=== PATIENT | male | born 1990 | race Caucasian/White ===

== ENCOUNTER 2023-03-05 04:22 | Emergency (ER) | payer OTHER ==
[~2023-03-05] VITALS: Ht 172.7 cm; Wt 84.0 kg
[2023-03-05 04:59] VITALS: O2SAT 97
[2023-03-05] MEDS ORDERED: HYDROCODONE/ACETAMINOPHEN 7.5/325MG TABLET PO ONE (05:45)
[2023-03-05 06:45] VITALS: BP 121/69; PULSE 84; RESP 18; TEMP 98.4
[2023-03-05 07:44] LABS: CLARITY URINE TURBID (CLEAR); COLOR URINE YELLOW (YELLOW); GLUCOSE URINE NEGATIVE (NEGATIVE); KETONES URINE NEGATIVE (NEGATIVE); LEUKOCYTE ESTERASE URINE NEGATIVE (NEGATIVE); NITRITE URINE NEGATIVE (NEGATIVE); OCCULT BLOOD URINE NEGATIVE (NEGATIVE); PROTEIN URINE NEGATIVE (NEGATIVE); SPECIFIC GRAVITY URINE 1.029 (1.005-1.030); UROBILINOGEN URINE 0.2 E.U./dL (0.2-1.0)
[2023-03-05 08:12] LABS: MUCUS URINE 2+ /lpf (NONE/TRACE)
[2023-03-05] MEDS ORDERED: KETOROLAC 60MG/2ML VIAL IM ONE (08:15)
[2023-03-05 08:16] LABS: URIC ACID CRYSTALS URINE 4+ /lpf
[2023-03-05 08:17] LABS: CALCIUM OXALATE CRYSTALS URINE 1+ /lpf
[2023-03-05 08:18] LABS: RBC URINE NONE SEEN /hpf (0-2); SQUAMOUS EPITHELIAL CELL URINE NONE SEEN /lpf (RARE/1+); WBC URINE NONE SEEN /hpf (0-2)
[2023-03-05 08:19] LABS: BACTERIA URINE TRACE
[2023-03-05 09:11] LABS: BASOPHILS % 0.2 % (0.0-2.0); HEMATOCRIT. 44.5 % (42.0-52.0); HEMOGLOBIN. 15.6 g/dL (14.0-18.0); LYMPHOCYTES % 8.7 % (20.0-50.0); MEAN CORPUSCULAR HEMOGLOBIN 30.5 pg (28.0-32.0); MEAN CORPUSCULAR VOLUME 87.1 fL (80.0-94.0); MEAN PLATELET VOLUME 9.4 fl (7.4-10.4); MONOCYTES % 3.4 % (2.0-8.0); NEUTROPHILS % 87.7 % (40.0-76.0); PLATELET 268 x1000/uL (130-400); WHITE BLOOD COUNT 16.2 x1000/uL (4.5-11.0)
[2023-03-05 09:39] LABS: CHLORIDE 106 mEq/L (98-107); POTASSIUM 3.9 mEq/L (3.5-5.1); SODIUM 138 mEq/L (136-145)
[2023-03-05 09:40] LABS: ALANINE AMINOTRANSFERASE 35 IU/L (10-49); ALBUMIN 4.7 g/dL (3.2-4.8); ASPARTATE AMINOTRANSFERASE 24 IU/L (<34); BILIRUBIN TOTAL 0.2 mg/dL (0.1-1.0); CALCIUM 9.5 mg/dL (8.7-10.4); CARBON DIOXIDE 23 mEq/L (21-32); CREATININE 1.2 mg/dL (0.6-1.3); GLUCOSE 136 mg/dL (70-105); PROTEIN TOTAL 7.3 g/dL (6.0-8.3)
[2023-03-05 09:51] LABS: UREA NITROGEN BLOOD 15 mg/dL (9-23)
[2023-03-05] MEDS ORDERED: CEFP200T13 MT (11:02)
[2023-03-05] MEDS ORDERED: IBUP-2028 MT (11:02)
[2023-03-05] MEDS ORDERED: TAMS-11 MT (11:02)
== END 2023-03-05 08:16 | disposition home or self-care (01) ==
LOC: ER 04:22
DX: N20.0 Calculus of kidney (principal); Z90.49 Acquired absence of other specified parts of digestive tract
CPT/HCPCS: 80053; 81003; 83690; 85025; 36415; 74176; 93976; 76870; 96372; 99285; J1885; Z7610 ×4